=== PATIENT | female | born 2000 | race Caucasian/White ===

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

== ENCOUNTER 2019-01-14 05:29 | Day surgery (SDC) | payer OTHER ==
[2019-01-14] MEDS: SOD CHLORIDE 0.9% 1,000 ML IV (06:14)
[2019-01-14] MEDS ORDERED: LIDOCAINE 1%/EPI 30 ML INJ (07:06)
[2019-01-14] MEDS ORDERED: BUPIVACAINE 0.25% (MPF) 30 ML INJ (07:06)
[2019-01-14] MEDS ORDERED: GENTAMICIN 80 MG INJ (07:07)
[2019-01-14] MEDS ORDERED: POLYMYXIN/BACITRACIN 1L IRRIG (07:07)
[2019-01-14] MEDS ORDERED: LIDOCAINE 2% (SDV) 5 ML INJ (07:29)
[2019-01-14] MEDS ORDERED: CEFAZOLIN 1 GM INJ (07:29)
[2019-01-14] MEDS ORDERED: METOCLOPRAMIDE 10 MG INJ (07:29)
[2019-01-14] MEDS ORDERED: ONDANSETRON 4 MG INJ (07:29)
[2019-01-14] MEDS ORDERED: MEPERIDINE 100 MG INJ (07:29)
[2019-01-14] MEDS ORDERED: PROPOFOL 20 ML (07:29)
[2019-01-14] MEDS ORDERED: morphine 2 MG INJ IV (07:30)
[2019-01-14] MEDS ORDERED: HYDROCODONE/APAP (5/325) TAB PO (07:30)
[2019-01-14] MEDS ORDERED: ONDANSETRON 4 MG INJ IV ×2 (07:30→08:30)
[2019-01-14] MEDS ORDERED: ROCURONIUM 50 MG INJ (07:52)
[2019-01-14] MEDS ORDERED: SUCCINYLCHOLINE CHLORIDE 100 MG/5 ML SYG IV (07:52)
[2019-01-14] MEDS ORDERED: NEOSTIGMINE 3 MG/3 ML SYRINGE (07:52)
[2019-01-14] MEDS ORDERED: GLYCOPYRROLATE 0.4 MG INJ (07:52)
[2019-01-14] MEDS: BUPIVACAINE 0.25%/EPI (SDV) 30 ML INJ (08:02)
[2019-01-14] MEDS: EPINEPHrine 1 MG INJ (08:03)
[2019-01-14] MEDS ORDERED: EXPAREL NOTE (BUPIVICAINE LIPOSOMAL) XX (08:30)
[2019-01-14] MEDS ORDERED: MIDAZOLAM 1 MG/ML 2 ML INJ IV (08:30)
[2019-01-14] MEDS ORDERED: METOCLOPRAMIDE 10 MG INJ IV (08:30)
[2019-01-14] MEDS ORDERED: FENTAnyl 50 MCG/ML VIAL IV ×3 (08:30)
[2019-01-14] MEDS ORDERED: OXYCODONE/ACETAMINOPHEN (5/325) TAB PO ×2 (08:30)
[2019-01-14] MEDS ORDERED: HYDROmorphONE 1 MG/5 ML IV SYRINGE IV ×3 (08:30)
[2019-01-14] MEDS ORDERED: MEPERIDINE 25 MG INJ IV (08:30)
[2019-01-14] MEDS ORDERED: DIPHENHYDRAMINE 50 MG INJ IV (08:30)
[2019-01-14] MEDS: BUPIVACAINE LIPOSOME/PF 266 MG/20 ML VIAL INFIL (08:31)
== END 2019-01-14 12:15 | disposition home or self-care (01) ==
LOC: SDS 05:29
DX: D18.01 Hemangioma of skin and subcutaneous tissue (principal)
CPT/HCPCS: 14020; 88305

== ENCOUNTER 2019-01-18 02:28 | Emergency (ER) | payer OTHER ==
[2019-01-18] MEDS: SOD CHLORIDE 0.9% 1,000 ML IV (04:44)
[2019-01-18 04:53] LABS: ADD MAN DIFF? NO
[2019-01-18 04:55] LABS: WHITE BLOOD COUNT 10.5 10^3/ul (4.8-10.8)
[2019-01-18 04:55] LABS: BASOPHIL # 0.1 10^3/ul (0.0-0.1); BASOPHILS % 0.7 % (0.0-2.0); EOSINOPHILS # 0.3 10^3/ul (0.0-0.5); EOSINOPHILS % 2.5 % (0.0-7.0); HEMATOCRIT 37.2 % (37.0-47.0); HEMOGLOBIN 11.5 g/dl (12.0-16.0); LYMPHOCYTES # 2.2 10^3/ul (0.8-2.9); LYMPHOCYTES % 21.1 % (18.0-55.0); MEAN CORPUSCULAR HEMOGLOBIN 23.2 pg (29.0-33.0); MEAN CORPUSCULAR HGB CONC 30.9 g/dl (32.0-37.0); MEAN CORPUSCULAR VOLUME 75.2 fl (72.0-104.0); MEAN PLATELET VOLUME 11.1 fl (7.4-10.4); MONOCYTE # 0.7 10^3/ul (0.3-0.9); MONOCYTES % 6.4 % (0.0-13.0); NEUTROPHIL # 7.3 10^3/ul (1.6-7.5); PLATELET COUNT 423 10^3/UL (140-415); RED BLOOD COUNT 4.95 10^6/ul (4.20-5.40); RED CELL DISTRIBUTION WIDTH 16.3 % (11.5-14.5)
[2019-01-18 05:06] LABS: ALANINE AMINOTRANSFERASE 174 IU/L (13-69); ALBUMIN 4.6 g/dl (3.3-4.9); ALBUMIN/GLOBULIN RATIO 1.15; ALKALINE PHOSPHATASE 128 IU/L (42-121); ANION GAP 13 (5-13); ASPARTATE AMINO TRANSFERASE 151 IU/L (15-46); BILIRUBIN,INDIRECT 0.4 mg/dl (0-1.1); BILIRUBIN,TOTAL 0.4 mg/dl (0.2-1.3); BLOOD UREA NITROGEN 19 mg/dl (7-20); CALCIUM 9.7 mg/dl (8.4-10.2); CARBON DIOXIDE 25 mmol/L (21-31); CHLORIDE 103 mmol/L (97-110); CREATININE 0.81 mg/dl (0.44-1.00); Estimated GFR > 60 mL/min (>60); GLUCOSE 111 mg/dl (70-220); LIPASE 107 U/L (23-300); SODIUM 141 mmol/L (135-144); TOTAL PROTEIN 8.6 g/dl (6.1-8.1)
[2019-01-18 06:20] LABS: ADD UMIC YES; UR ASCORBIC ACID NEGATIVE (NEGATIVE); UR BACTERIA FEW /HPF (NONE SEEN); UR BILIRUBIN (Dip) NEGATIVE (NEGATIVE); UR BLOOD (Dip) NEGATIVE (NEGATIVE); UR CLARITY CLOUDY (CLEAR); UR COLOR YELLOW (YELLOW); UR GLUCOSE (Dip) NEGATIVE (NEGATIVE); UR KETONES (Dip) 1+ mg/dL (NEGATIVE); UR LEUKOCYTE ESTERASE (Dip) 3+ Leu/ul (NEGATIVE); UR MUCUS MANY /HPF (NONE SEEN); UR NITRITE (Dip) NEGATIVE (NEGATIVE); UR RBC 2 /HPF (0-5); UR SPECIFIC GRAVITY (Dip) 1.023 (1.003-1.030); UR SQUAMOUS EPITHELIAL CELL FEW /HPF (FEW); UR TOTAL PROTEIN (Dip) NEGATIVE (NEGATIVE); UR UROBILINOGEN (Dip) NEGATIVE (NEGATIVE); UR WBC 152 /HPF (0-5)
== END 2019-01-18 07:11 | disposition home or self-care (01) ==
LOC: E/R 02:28
DX: N30.00 Acute cystitis without hematuria (principal); R74.0 Nonspecific elevation of levels of transaminase and lactic acid dehydrogenase [LDH]; D64.9 Anemia, unspecified; D75.89 Other specified diseases of blood and blood-forming organs
CPT/HCPCS: 36415; 76705; 80053; 81001; 81025; 83690; 85025; 93005; 96360; 99285-25